=== PATIENT | female | born 1980 | race Caucasian/White ===

== ENCOUNTER 2020-03-08 12:00 | Outpatient (CLI) | payer OTHER | END 2020-03-08 23:59 | disposition home or self-care (01) | LOC: LAB.R 12:00 | PROVIDERS: ATTEND Nurse Practitioner Family | DX: R31.9 Hematuria, unspecified (principal); R50.9 Fever, unspecified | CPT/HCPCS: 87086 ==

== ENCOUNTER 2020-03-26 14:00 | Outpatient (CLI) | payer OTHER | END 2020-03-26 14:01 | disposition home or self-care (01) | LOC: LAB 14:00 | PROVIDERS: ATTEND Nurse Practitioner Family | DX: Z53.9 Procedure and treatment not carried out, unspecified reason (principal) | CPT/HCPCS: 87086 ==

== ENCOUNTER 2020-04-25 12:32 | Outpatient (CLI) | payer OTHER | END 2020-04-25 12:33 | disposition home or self-care (01) | LOC: COV 12:32 | PROVIDERS: ATTEND Family Medicine | DX: Z20.828 Contact with and (suspected) exposure to other viral communicable diseases (principal) ==

== ENCOUNTER 2020-05-16 15:15 | Outpatient (CLI) | payer OTHER ==
[2020-05-17 19:52] LABS: CANDIDA GROUP DNA NEGATIVE (NEGATIVE); CANDIDA KRUSEI DNA NEGATIVE (NEGATIVE); TRICHOMONAS VAGINALIS DNA NEGATIVE (NEGATIVE)
== END 2020-05-16 23:59 | disposition home or self-care (01) ==
LOC: LAB.R 15:15
PROVIDERS: ATTEND Advanced Practice Midwife
DX: N89.8 Other specified noninflammatory disorders of vagina (principal)
CPT/HCPCS: 87661; 87801

== ENCOUNTER 2020-05-17 19:25 | Outpatient (CLI) | payer OTHER ==
--- NOTE | 2020-05-17 20:39 | Ultrasound Report ---
PROCEDURE: Pelvic w/Transvaginal INDICATIONS: IUD PLACEMENT TECHNIQUE: Real-time scanning was performed of the pelvic organs, with image documentation. Additional endovagi nal scanning was necessary due to incomplete visualization of the adnexal and endometrial structures by transabdominal scanning. COMPARISON: None. FINDINGS: Transabdominal scanning: Limited scanning through the kidneys shows no hydronephrosis. No pathologi c free abdominal or pelvic fluid. Endovaginal scanning: Uterus: Uterus is normal in size at 8.2 x 4 x 4.5 cm. The endometrium measures 7 mm in combined thi ckness. Intrauterine device is seen in expected position within the endometrium. Ovaries: The right ovary measures 3.3 x 1.4 x 1.8 cm with a volume of 4 mL. The left ovary measures 2.6 x 2 x 2 cm with a volume of 6 mL. A cyst is seen in the left ovary measuring up to 1.9 cm in maxi mum dimension. IMPRESSION: Intrauterine device in expected position within the endometrium. Reviewed by: Sunil Amador MD on 05/17/2020 8:38 PM PDT Approved by: Sunil Amador MD on 05/17/2020 8:38 PM PDT Station ID: [id number]
== END 2020-05-17 19:26 | disposition home or self-care (01) ==
LOC: DI 19:25
PROVIDERS: ATTEND Advanced Practice Midwife
DX: Z97.5 Presence of (intrauterine) contraceptive device (principal)
CPT/HCPCS: 76830; 76856

== ENCOUNTER 2021-06-19 08:00 | Outpatient (CLI) | payer OTHER | END 2021-06-19 23:59 | disposition home or self-care (01) | LOC: LAB.N 08:00 | PROVIDERS: ATTEND Physician Assistant | DX: R07.0 Pain in throat (principal); R05.3 Chronic cough; Z20.822 Contact with and (suspected) exposure to COVID-19 ==

== ENCOUNTER 2022-01-03 17:37 | Outpatient (CLI) | payer OTHER ==
[2022-01-03 18:09] LABS: BILIRUBIN,URINE NEGATIVE (NEGATIVE); GLUCOSE, URINE (UA) NEGATIVE (NEGATIVE); KETONES,URINE (UA) NEGATIVE (NEGATIVE); LEUKOCYTE ESTERASE, URINE NEGATIVE (NEGATIVE); NITRITE,URINE NEGATIVE (NEGATIVE); OCCULT BLOOD,URINE NEGATIVE (NEGATIVE); PROTEIN,URINE NEGATIVE (NEGATIVE); UROBILINOGEN,URINE 0.2 (NORMAL) E.U./dL (NORMAL)
[2022-01-03 18:21] LABS: BACTERIA,URINE Few /HPF (None Seen); CLARITY,URINE HAZY (CLEAR); RBC,URINE 0-5 /HPF (0-5); SQUAMOUS EPITHELIAL CELL,UR MOD Squamous (<= Few); WBC,URINE 0-3 /HPF (0-5)
== END 2022-01-03 17:38 | disposition home or self-care (01) ==
LOC: LAB 17:37
PROVIDERS: ATTEND Obstetrics & Gynecology
DX: Z32.01 Encounter for pregnancy test, result positive (principal)
CPT/HCPCS: 81001; 87086

== ENCOUNTER 2022-01-16 15:44 | Outpatient (CLI) | payer OTHER ==
[2022-01-16 17:01] LABS: BASOPHILS % (AUTO) 0.3 %; EOSINOPHILS # (AUTO) 0.1 10^3/uL (0.0-0.7); EOSINOPHILS % (AUTO) 0.7 %; HCT - HEMATOCRIT 38.9 % (37.0-47.0); HGB - HEMOGLOBIN 12.9 g/dL (12.0-16.0); LYMPHOCYTES # (AUTO) 2.1 10^3/uL (1.5-3.5); LYMPHOCYTES % (AUTO) 19.5 %; MEAN CORPUSCULAR HEMOGLOBIN 30.8 pg (27.0-31.0); MEAN CORPUSCULAR HGB CONC 33.2 g/dL (32.0-36.0); MEAN CORPUSCULAR VOLUME 92.8 fL (81.0-99.0); MEAN PLATELET VOLUME 9.6 fL (7.9-10.8); MONOCYTES # (AUTO) 0.5 10^3/uL (0.0-1.0); NEUTROPHILS # (AUTO) 7.8 10^3/uL (1.5-6.6); NEUTROPHILS % (AUTO) 74.2 %; PLT - PLATELET COUNT 298 10^3/uL (130-450); RED BLOOD COUNT 4.19 10^6/uL (4.20-5.40); RED CELL DISTRIBUTION WIDTH 11.9 % (12.0-15.0); WHITE BLOOD COUNT 10.5 x10^3/uL (4.8-10.8)
[2022-01-17 03:09] LABS: RPR Non Reactive (Non Reactive)
[2022-01-17 06:10] LABS: HBsAG SCREEN Negative (Negative); HCV AB 0.1 s/co ratio (0.0-0.9)
[2022-01-17 07:10] LABS: HIV SCREEN 4TH GENERATION Non Reactive (Non Reactive)
[2022-01-17 08:09] LABS: VARICELLA-ZOSTER AB IGG 1634 index (Immune >165)
--- NOTE | 2022-01-17 14:06 | Ultrasound Report ---
PROCEDURE: OB First Trimester w/TV INDICATIONS: POSITIVE TEST OUTSIDE/PRIOR DATING DATA: Last menstrual period (LMP): 11/20/2021. LMP-based estimated date of delivery (JOY): 08/27/2022. First dating scan (date and location): 01/16/2022. Estimated date of delivery (JOY) from first dating scan: 08/24/2022. The below data below was generated using the ultrasound JOY of 08/24/2022 TECHNIQUE: Real-time scanning was performed of the fetus and maternal pelvic organs, with image documentation. Endovaginal scanning was also performed to better visualize the fetus and maternal ovaries. COMPARISON: None. FINDINGS: Embryo: Single living intrauterine gestation with estimated sonographic gestational age of approxima tely 8 weeks and 4 days based off crown-rump length measurement of 1.95 cm. Normal yolk sac identifie d. No perigestational hemorrhage. Heart rate: 1 66 bpm Measurement variability in dating: +/- 4 weeks by LMP, +/- 7 days by mean sac diameter (use before 6 weeks gestation if crown-rump length not able to be measured), +/- 5 days by crown-rump length (6-12 weeks gestation). Maternal organs: Right ovary was not visualized on this exam. Left corpus luteal cyst measuring 1.7 c m in size. Maternal cervix measures approximately 3.75 cm. Cervix appears long and closed. IMPRESSION: Single living intrauterine gestation with estimated sonographic gestational age of approximately 8 we eks and 4 days based off crown-rump length measurement. Estimated date of delivery is approximately . Recommend continued clinical surveillance with follow-up routine second trimester anatomic scre ening survey. Reviewed by: Crow Damon MD on 01/17/2022 2:04 PM PDT Approved by: Crow Damon MD on 01/17/2022 2:04 PM PDT Station ID: [id number]
== END 2022-01-16 15:45 | disposition home or self-care (01) ==
LOC: DI 15:44
PROVIDERS: ATTEND Obstetrics & Gynecology
DX: Z32.01 Encounter for pregnancy test, result positive (principal); Z36.89 Encounter for other specified antenatal screening
CPT/HCPCS: 36415; 85025; 86592; 86762; 86787; 86803; 86850; 86900; 86901; 87340; 87389

== ENCOUNTER 2022-01-24 08:00 | Outpatient (CLI) | payer OTHER ==
[2022-01-24 16:53] LABS: BILIRUBIN,URINE NEGATIVE (NEGATIVE); GLUCOSE, URINE (UA) NEGATIVE (NEGATIVE); KETONES,URINE (UA) NEGATIVE (NEGATIVE); LEUKOCYTE ESTERASE, URINE NEGATIVE (NEGATIVE); NITRITE,URINE NEGATIVE (NEGATIVE); OCCULT BLOOD,URINE NEGATIVE (NEGATIVE); PH,URINE 6.5 PH (5.0-7.5); PROTEIN,URINE NEGATIVE (NEGATIVE); UROBILINOGEN,URINE 0.2 (NORMAL) E.U./dL (NORMAL)
[2022-01-24 16:58] LABS: CLARITY,URINE CLEAR (CLEAR)
[2022-01-24 17:10] LABS: BACTERIA,URINE Few /HPF (None Seen); RBC,URINE 0-5 /HPF (0-5); SQUAMOUS EPITHELIAL CELL,UR FEW Squamous (<= Few); WBC,URINE 0-3 /HPF (0-5)
== END 2022-01-24 23:59 | disposition home or self-care (01) ==
LOC: LAB 08:00
PROVIDERS: ATTEND Obstetrics & Gynecology
DX: Z36.89 Encounter for other specified antenatal screening (principal)
CPT/HCPCS: 81001; 87086

== ENCOUNTER 2022-02-12 09:12 | Outpatient (CLI) | payer OTHER | END 2022-02-12 09:13 | disposition home or self-care (01) | LOC: LAB 09:12 | PROVIDERS: ATTEND Obstetrics & Gynecology | DX: Z34.90 Encounter for supervision of normal pregnancy, unspecified, unspecified trimester (principal) | CPT/HCPCS: 36415; 82950 ==

== ENCOUNTER 2022-02-19 08:18 | Outpatient (CLI) | payer OTHER ==
[2022-02-19 08:58] LABS: GTT GLUCOSE,FASTING 100 mg/dL (70-100)
== END 2022-02-19 08:19 | disposition home or self-care (01) ==
LOC: LAB 08:18
PROVIDERS: ATTEND Obstetrics & Gynecology
DX: O99.810 Abnormal glucose complicating pregnancy (principal)
CPT/HCPCS: 36415; 82951; 82952

== ENCOUNTER 2022-04-04 06:53 | Outpatient (CLI) | payer OTHER ==
--- NOTE | 2022-04-04 13:36 | Ultrasound Report ---
PROCEDURE: OB Detailed Eval INDICATIONS: SUPERVISION OF OUTSIDE/PRIOR DATING DATA: Last menstrual period (LMP): 11/20/2021. LMP-based estimated date of delivery (JOY): 08/27/2022. First dating scan (date and location): 01/16/2022. Estimated date of delivery (JOY) from first dating scan: 08/24/2022 TECHNIQUE: COMPARISON: 01/16/2022 FINDINGS: General: A single living intrauterine gestation is present. Presentation: Breech Placenta: Placental position is posterior, without previa. Amniotic fluid index: 14.6 cm heart rate: 148 beats per minute. Maternal cervical canal: 5.2 cm long; normal length is 2.5 cm or more. biometrics (centimeters): Biparietal diameter: 4.6 Head circumference: 17.3 Abdominal circumference: 14.5 Femur length: 3.2 Estimated gestational age from initial scan: 19 weeks and 5 days Composite gestational age from present scan: 19 weeks and 6 days Estimated weight and percentile: 55.6 percentile, 319 g Measurement variability in biometric dating: +/- 10 days from 12-20 weeks gestation, +/- 2 weeks from 20-30 weeks gestation, +/- 3 weeks at 30 weeks gestation or later. Anatomic survey: Neuro: Ventricles are normal at less than 10 mm. Cisterna magna is normal at 3-11 mm. Cerebellum i s normal in size and morphology. Nuchal skin fold: Not well seen Face: Not well seen Spine: The skin line overlying the sacral spine is not well seen. Heart: Not well seen Diaphragm: Not well seen Stomach: Left-sided stomach is present. Kidneys: No hydronephrosis. Normal is less than 5 mm in 2nd trimester, less than 7 mm in 3rd trimester. Cord: Not well seen Bladder: Normal in size. Gender is not well seen. Extremities: Lower extremities are not well seen. IMPRESSION: Intrauterine gestation at 19 weeks and 5 days based on initial ultrasound with concordant dating toda y (55.6 percentile). Multiple anatomic structures above are not well seen due to patient factors. Consider follow-up imagi ng. Reviewed by: Chris Hernandez MD on 04/04/2022 1:35 PM PDT Approved by: Chris Hernandez MD on 04/04/2022 1:35 PM PDT Station ID: [id number]
== END 2022-04-04 06:54 | disposition home or self-care (01) ==
LOC: DI 06:53
PROVIDERS: ATTEND Obstetrics & Gynecology
DX: O09.512 Supervision of elderly primigravida, second trimester (principal); Z36.89 Encounter for other specified antenatal screening; Z3A.19 19 weeks gestation of pregnancy

== ENCOUNTER 2022-04-10 20:11 | Outpatient (CLI) | payer OTHER ==
--- NOTE | 2022-04-11 09:43 | Ultrasound Report ---
PROCEDURE: OB F/U or Repeat INDICATIONS: SUPERVISION OF OUTSIDE/PRIOR DATING DATA: Last menstrual period (LMP): 11/20/2021. LMP-based estimated date of delivery (JOY): 08/27/2022. First dating scan (date and location): 01/16/2022. Estimated date of delivery (JOY) from first dating scan: 08/24/2022. The below data below was generated using the ultrasound JOY of 08/24/2022 TECHNIQUE: Real-time scanning was performed of the fetus, with image documentation. Endovaginal scanning: Not performed COMPARISON: 04/04/2022 FINDINGS: General: A single living intrauterine gestation is present. Presentation: Vertex Placenta: Placental position is posterior, without previa. Amniotic fluid index: 14.0 cm, deepest pocket is 5.0 cm. heart rate: 140 beats per minute. Maternal cervical canal: Not well seen Other: The facial profile, nose, lips, and orbits are without abnormality. The nuchal thicknes s is normal for age. 4 chambered heart, cardiac outflow tracts, diaphragm, kidneys, cord insert ion, gender, and lower extremities were seen and appear normal. IMPRESSION: 1. Single living intrauterine . 2. Completion of the anatomic survey with normal anatomy seen. Reviewed by: Luba Rankin MD on 04/11/2022 9:42 AM PDT Approved by: Luba Rankin MD on 04/11/2022 9:42 AM PDT Station ID: [id number]
== END 2022-04-10 20:12 | disposition home or self-care (01) ==
LOC: DI 20:11
PROVIDERS: ATTEND Obstetrics & Gynecology
DX: O09.512 Supervision of elderly primigravida, second trimester (principal)

== ENCOUNTER 2022-06-05 07:50 | Outpatient (CLI) | payer OTHER ==
[2022-06-05 08:19] LABS: GTT GLUCOSE,FASTING 94 mg/dL (70-100)
== END 2022-06-05 07:51 | disposition home or self-care (01) ==
LOC: LAB 07:50
PROVIDERS: ATTEND Student in an Organized Health Care Education/Training Program
DX: R73.09 Other abnormal glucose (principal)
CPT/HCPCS: 36415; 82951; 82952

== ENCOUNTER 2023-07-10 14:33 | Emergency (ER) | payer OTHER ==
[2023-07-10 14:48] VITALS: O2SAT 100
--- NOTE | 2023-07-10 14:52 | ED Physician Documentation ---
PD HPI FEMALE - Stated complaint Stated Complaint: FEMALE - Chief complaint Chief Complaint: Abd Pain - History obtained from History obtained from: Patient - History of Present Illness Timing - onset: Yesterday, How many days ago (1) Timing - duration: Days (1) Timing - details: Gradual onset, Waxing and waning Associated symptoms: Vaginal bleeding (brown discharge that has become pink and now red. No clots. Mild lower abd cramping at times.). No: Fever Contributing factors: (5 weeks by dates from LMP. Had home positive preg test 6 days go.), Sexually active. No: Exposed to STD Similar symptoms before: Has not had sx before Recently seen: Not recently seen Review of Systems Constitutional: denies: Fever, Chills Nose: denies: Congestion Throat: denies: Sore throat Respiratory: denies: Cough : reports: Now EGA (had positive home test 4 days ago and again ydsterday.). denies: Dysuria, Frequency, Discharge PD PAST MEDICAL HISTORY - Past Medical History Past Medical History: Yes Cardiovascular: Hypertension Psych: Depression, Anxiety - Past Surgical History Past Surgical History: Yes Ortho: Carpal Tunnel surgery HEENT: Tonsil/Adenoidectomy - Present Medications Home Medications: Ambulatory Orders Medication Instructions Recorded Confirmed Sertraline [Zoloft] 50 mg PO DAILY 07/10/23 07/10/23 busPIRone [Buspar] 10 mg PO BID 07/10/23 07/10/23 - Allergies Allergies/Adverse Reactions: Allergies Allergy/AdvReac Type Severity Reaction Status Date / Time No Known Drug Allergies Allergy Verified 07/10/23 14:48 - Social History Does the pt smoke?: No Smoking Status: Never smoker Does the pt drink ETOH?: No Does the pt have substance abuse?: No - Immunizations Immunizations are current?: Yes - POLST Patient has POLST: No PD ED PE NORMAL - Vitals Vital signs reviewed: Yes - General General: Alert and oriented X 3, No acute distress, Well developed/nourished - Cardiac Cardiac: RRR, No murmur - Respiratory Respiratory: No respiratory distress, Clear bilaterally - Abdomen Abdomen: Soft, Non tender, Other (high BMI) - Female Female : Deferred Results - Vitals Vitals: Vital Signs - 24 hr 07/10/23 07/10/23 07/10/23 14:42 14:48 16:48 Temperature 36.8 C 36.8 C 36.8 C Heart Rate 89 89 88 Respiratory 16 16 16 Rate Blood Pressure 214/97 H 214/97 H 190/80 H O2 Saturation 100 100 100 Oxygen O2 Source Room air - Labs Labs: Laboratory Tests 07/10/23 07/10/23 07/10/23 15:39 15:39 15:39 WBC 7.8 RBC 4.29 Hgb 12.5 Hct 38.6 MCV 90.0 MCH 29.1 MCHC 32.4 RDW 12.6 Plt Count 283 MPV 9.5 Neut # (Auto) 5.3 Lymph # (Auto) 1.9 [place] # (Auto) 0.5 Eos # (Auto) 0.1 Baso # (Auto) 0.0 Absolute Nucleated RBC 0.00 Nucleated RBC % 0.0 Sodium 137 Potassium 3.7 Chloride 103 Carbon Dioxide 28 Anion Gap 6.0 BUN 12 Creatinine 0.7 Estimated GFR (MDRD) 92 Glucose 101 Calcium 9.1 Total Bilirubin 0.4 AST 16 ALT 15 Alkaline Phosphatase 54 Total Protein 6.8 Albumin 4.1 Globulin 2.7 Albumin/Globulin Ratio 1.5 Lipase 18 Beta HCG, Quant 11.2 Blood Type O POSITIVE - Rads (name of study) OB pelvic US Relevant Findings:: Prelim report reviewed (no IIUP nor adnexal/pelvic acute abnormality. ), EMP independent interpretation of test PD Medical Decision Making - ED course Complexity details: reviewed results, considered differential (has some vaginal spotting/bleeding. Had home preg test positive this past week. Has quant HCG of just 11 here. So presume miscarriage as a rising quant with 11 now, would not have been in detectable level for urine HCG. Presume the 11 quant is a falling level. Did US to ensure not visible ectopic/et), d/w patient Departure - Departure Disposition: 01 Home, Self Care Clinical Impression: Early stage of , Blighted ovum Condition: Stable Record reviewed to determine appropriate education?: Yes Instructions: ED Miscarriage Poss Follow-Up: LUANN OLMEDO ARNP [Primary Care Provider] - Comments: Your ultrasound did not show any obvious intrauterine . More importantly at this point there is no abnormality seen in the ovaries or outside the uterus and no free fluid to suggest pelvic bleeding. It is possible that your is too early to be seen on ultrasound. Your blood level hCG was 11 which is very low and suggestive more likely that it was a blighted ovum/miscarriage. However would be most prudent to check with your primary care and have them order a serum quantitative hCG level on Thursday to assess whether it is going higher to suggest a viable or lower/the same to confirm miscarriage. I would anticipate improvement in the vaginal spotting and bleeding. Recheck if significant increase in bleeding or you have increased pain, purulent discharge, fevers or other concerns. Forms: PCP List Discharge Date/Time: 07/10/23 17:47
[2023-07-10 15:45] LABS: BASOPHILS % (AUTO) 0.4 %; EOSINOPHILS # (AUTO) 0.1 10^3/uL (0.0-0.7); EOSINOPHILS % (AUTO) 1.3 %; HCT - HEMATOCRIT 38.6 % (37.0-47.0); HGB - HEMOGLOBIN 12.5 g/dL (12.0-16.0); LYMPHOCYTES # (AUTO) 1.9 10^3/uL (1.5-3.5); MEAN CORPUSCULAR HEMOGLOBIN 29.1 pg (27.0-31.0); MEAN CORPUSCULAR HGB CONC 32.4 g/dL (32.0-36.0); MEAN PLATELET VOLUME 9.5 fL (7.9-10.8); MONOCYTES # (AUTO) 0.5 10^3/uL (0.0-1.0); MONOCYTES % (AUTO) 6.4 %; NEUTROPHILS # (AUTO) 5.3 10^3/uL (1.5-6.6); NEUTROPHILS % (AUTO) 67.6 %; PLT - PLATELET COUNT 283 10^3/uL (130-450); RED BLOOD COUNT 4.29 10^6/uL (4.20-5.40); RED CELL DISTRIBUTION WIDTH 12.6 % (12.0-15.0); WHITE BLOOD COUNT 7.8 x10^3/uL (4.8-10.8)
[2023-07-10 16:10] LABS: ALBUMIN 4.1 g/dL (3.2-5.5); ALBUMIN/GLOBULIN RATIO 1.5 (1.0-2.2); BILIRUBIN,TOTAL 0.4 mg/dL (0.2-1.0); CALCIUM 9.1 mg/dL (8.5-10.3); CREATININE 0.7 mg/dL (0.6-1.3); POTASSIUM 3.7 mmol/L (3.5-4.5); TOTAL PROTEIN 6.8 g/dL (6.4-8.9)
[2023-07-10 17:47] VITALS: BP 190/80
--- NOTE | 2023-07-10 18:07 | Ultrasound Report ---
PROCEDURE: OB First Trimester INDICATIONS: early preg, vag bleeding/cramps OUTSIDE/PRIOR DATING DATA: Last menstrual period (LMP): Unknown. LMP-based estimated date of delivery (JOY): Unknown. TECHNIQUE: Real-time scanning was performed of the fetus and maternal pelvic organs, with image documentation. COMPARISON: None. FINDINGS: No intrauterine gestational sac seen. Maternal organs: Adnexa are unremarkable. No free fluid. Uterus measures 9 x 5 x 4.1 cm. Endometrium measures 8 mm. IMPRESSION: of uncertain location. No intrauterine gestational sac. No significant ovarian cyst seen. No free fluid. Recommend trending beta hCG and short-term follow-up OB ultrasound if indicated. Reviewed by: Lance Torres MD on 07/10/2023 6:06 PM PST Approved by: Lance Torres MD on 07/10/2023 6:06 PM PST Station ID: [id number]
== END 2023-07-10 17:47 | disposition home or self-care (01) ==
LOC: ED 14:33
DX: O02.0 Blighted ovum and nonhydatidiform mole (principal)
CPT/HCPCS: 36415; 80053; 83690; 84702; 85025; 86900; 86901; 99283; 99284

== ENCOUNTER 2023-12-07 08:00 | Outpatient (CLI) | payer OTHER ==
[2023-12-07 16:56] LABS: BILIRUBIN,URINE NEGATIVE (NEGATIVE); GLUCOSE, URINE (UA) NEGATIVE (NEGATIVE); KETONES,URINE (UA) NEGATIVE (NEGATIVE); LEUKOCYTE ESTERASE, URINE NEGATIVE (NEGATIVE); NITRITE,URINE NEGATIVE (NEGATIVE); OCCULT BLOOD,URINE NEGATIVE (NEGATIVE); PH,URINE 7.5 PH (5.0-7.5); PROTEIN,URINE NEGATIVE (NEGATIVE); UROBILINOGEN,URINE 0.2 (NORMAL) E.U./dL (NORMAL)
[2023-12-07 17:06] LABS: BACTERIA,URINE None Seen /HPF (None Seen); CLARITY,URINE CLEAR (CLEAR); RBC,URINE None Seen /HPF (0-5); SQUAMOUS EPITHELIAL CELL,UR NONE SEEN (<= Few); WBC,URINE 0-3 /HPF (0-5)
== END 2023-12-07 23:59 | disposition home or self-care (01) ==
LOC: LAB.WC 08:00 → MERGE 16:50 → LAB.WC 23:59
PROVIDERS: ATTEND Obstetrics & Gynecology
DX: Z34.80 Encounter for supervision of other normal pregnancy, unspecified trimester (principal)
CPT/HCPCS: 81001; 87086

== ENCOUNTER 2023-12-23 15:57 | Outpatient (CLI) | payer OTHER ==
[2023-12-23 17:05] LABS: BASOPHILS % (AUTO) 0.2 %; EOSINOPHILS # (AUTO) 0.1 10^3/uL (0.0-0.7); EOSINOPHILS % (AUTO) 1.2 %; HCT - HEMATOCRIT 36.2 % (37.0-47.0); HGB - HEMOGLOBIN 11.4 g/dL (12.0-16.0); LYMPHOCYTES # (AUTO) 1.8 10^3/uL (1.5-3.5); LYMPHOCYTES % (AUTO) 20.4 %; MEAN CORPUSCULAR HGB CONC 31.5 g/dL (32.0-36.0); MEAN CORPUSCULAR VOLUME 92.1 fL (81.0-99.0); MEAN PLATELET VOLUME 9.5 fL (7.9-10.8); MONOCYTES # (AUTO) 0.5 10^3/uL (0.0-1.0); MONOCYTES % (AUTO) 5.3 %; NEUTROPHILS # (AUTO) 6.5 10^3/uL (1.5-6.6); NEUTROPHILS % (AUTO) 72.7 %; PLT - PLATELET COUNT 291 10^3/uL (130-450); RED BLOOD COUNT 3.93 10^6/uL (4.20-5.40); RED CELL DISTRIBUTION WIDTH 12.2 % (12.0-15.0); WHITE BLOOD COUNT 8.9 x10^3/uL (4.8-10.8)
--- NOTE | 2023-12-24 01:41 | Ultrasound Report ---
PROCEDURE: OB 1st Trimester INDICATIONS: POSITIVE TEST OUTSIDE/PRIOR DATING DATA: Last menstrual period (LMP): 10/14/2023. LMP-based estimated date of delivery (JOY): 07/20/2024. First dating scan (date and location): 12/23/2023. Estimated date of delivery (JOY) from first dating scan: 10 weeks, 6 days. TECHNIQUE: Real-time scanning was performed of the fetus and maternal pelvic organs, with image documentation. COMPARISON: None. FINDINGS: Intrauterine gestational sac present. Embryo: There is a single intrauterine gestation. Mean gestational sac diameter measures 5.99 cm cor responding to estimated age of 12 weeks, 1 day. Spearman-rump length measures 3.9 cm with estimate d age of 10 weeks, 6 days. Heart rate: 173 bpm. Other: No perigestational fluid collection. Measurement variability in dating: +/- 4 weeks by LMP, +/- 7 days by mean sac diameter (use before 6 weeks gestation if crown-rump length not able to be measured), +/- 5 days by crown-rump length (6-12 weeks gestation). Maternal organs: Ovaries appear within normal limits. Left corpus luteum cyst. IMPRESSION: Single intrauterine gestation with crown-rump length of 3.9 cm corresponding to estimated age o f 10 weeks, 6 days. Reviewed by: Summer Linn MD, PhD on 12/24/2023 12:39 AM NADER Approved by: Summer Linn MD, PhD on 12/24/2023 12:39 AM NADER Station ID: [id number]
[2023-12-24 03:11] LABS: HBsAG SCREEN Negative (Negative); HIV SCREEN 4TH GENERATION Non Reactive (Non Reactive)
[2023-12-24 07:10] LABS: RPR Non Reactive (Non Reactive)
[2023-12-24 09:10] LABS: VARICELLA-ZOSTER AB IGG 2120 index (Immune >165)
[2023-12-26 01:09] LABS: HCV AB Non Reactive (Non Reactive)
== END 2023-12-23 15:58 | disposition home or self-care (01) ==
LOC: DI 15:57
PROVIDERS: ATTEND Obstetrics & Gynecology
DX: O09.521 Supervision of elderly multigravida, first trimester (principal); Z36.89 Encounter for other specified antenatal screening; Z3A.10 10 weeks gestation of pregnancy
CPT/HCPCS: 36415; 85025; 86592; 86762; 86787; 86803; 86850; 86900; 86901; 87340; 87389

== ENCOUNTER 2023-12-30 08:00 | Outpatient (CLI) | payer OTHER ==
[2023-12-30 16:15] LABS: BILIRUBIN,URINE NEGATIVE (NEGATIVE); GLUCOSE, URINE (UA) NEGATIVE (NEGATIVE); KETONES,URINE (UA) NEGATIVE (NEGATIVE); LEUKOCYTE ESTERASE, URINE NEGATIVE (NEGATIVE); NITRITE,URINE NEGATIVE (NEGATIVE); OCCULT BLOOD,URINE NEGATIVE (NEGATIVE); PROTEIN,URINE NEGATIVE (NEGATIVE); UROBILINOGEN,URINE 0.2 (NORMAL) E.U./dL (NORMAL)
[2023-12-30 16:19] LABS: CLARITY,URINE CLEAR (CLEAR)
[2023-12-30 16:32] LABS: BACTERIA,URINE Few /HPF (None Seen); MUCUS,URINE Few Strands; RBC,URINE 0-5 /HPF (0-5); SQUAMOUS EPITHELIAL CELL,UR FEW Squamous (<= Few); WBC,URINE 0-3 /HPF (0-5)
[2023-12-30 20:51] LABS: CHLAMYDIA TRACHOMATIS DNA NEGATIVE (NEGATIVE); NEISSERIA GONORRHOEAE DNA NEGATIVE (NEGATIVE); TRICHOMONAS VAGINALIS DNA NEGATIVE (NEGATIVE)
== END 2023-12-30 23:59 | disposition home or self-care (01) ==
LOC: LAB.WC 08:00
PROVIDERS: ATTEND Obstetrics & Gynecology
DX: Z34.80 Encounter for supervision of other normal pregnancy, unspecified trimester (principal); Z36.89 Encounter for other specified antenatal screening
CPT/HCPCS: 81001; 87086; 87491; 87591; 87661

== ENCOUNTER 2023-12-31 11:31 | Outpatient (CLI) | payer OTHER | END 2023-12-31 11:32 | disposition home or self-care (01) | LOC: LAB.N 11:31 | PROVIDERS: ATTEND Obstetrics & Gynecology | DX: Z53.9 Procedure and treatment not carried out, unspecified reason (principal) ==

== ENCOUNTER 2024-01-01 12:29 | Outpatient (CLI) | payer OTHER | END 2024-01-01 12:30 | disposition home or self-care (01) | LOC: LAB 12:29 | PROVIDERS: ATTEND Obstetrics & Gynecology | DX: O09.91 Supervision of high risk pregnancy, unspecified, first trimester (principal) ==

== ENCOUNTER 2024-01-13 09:06 | Outpatient (CLI) | payer OTHER ==
[2024-01-13 11:00] LABS: ESTIMATED AVERAGE GLUCOSE 94 mg/dL (70-100); HEMOGLOBIN A1c% 4.9 % (4.27-6.07)
== END 2024-01-13 09:07 | disposition home or self-care (01) ==
LOC: LAB 09:06
PROVIDERS: ATTEND Obstetrics & Gynecology
DX: O09.91 Supervision of high risk pregnancy, unspecified, first trimester (principal)
CPT/HCPCS: 36415; 82950; 83036

== ENCOUNTER 2024-02-16 13:37 | Outpatient (CLI) | payer OTHER | END 2024-02-16 13:38 | disposition home or self-care (01) | LOC: LAB 13:37 | PROVIDERS: ATTEND Obstetrics & Gynecology | DX: O09.91 Supervision of high risk pregnancy, unspecified, first trimester (principal) | CPT/HCPCS: 36415; 82105 ==

== ENCOUNTER 2024-04-13 09:12 | Outpatient (CLI) | payer OTHER ==
[2024-04-13 10:43] LABS: BASOPHILS % (AUTO) 0.2 %; EOSINOPHILS # (AUTO) 0.1 10^3/uL (0.0-0.7); HCT - HEMATOCRIT 32.7 % (37.0-47.0); HGB - HEMOGLOBIN 10.4 g/dL (12.0-16.0); LYMPHOCYTES # (AUTO) 1.3 10^3/uL (1.5-3.5); LYMPHOCYTES % (AUTO) 16.2 %; MEAN CORPUSCULAR HEMOGLOBIN 29.3 pg (27.0-31.0); MEAN CORPUSCULAR HGB CONC 31.8 g/dL (32.0-36.0); MEAN CORPUSCULAR VOLUME 92.1 fL (81.0-99.0); MEAN PLATELET VOLUME 9.4 fL (7.9-10.8); MONOCYTES # (AUTO) 0.3 10^3/uL (0.0-1.0); MONOCYTES % (AUTO) 4.1 %; NEUTROPHILS # (AUTO) 6.3 10^3/uL (1.5-6.6); NEUTROPHILS % (AUTO) 77.9 %; PLT - PLATELET COUNT 238 10^3/uL (130-450); RED BLOOD COUNT 3.55 10^6/uL (4.20-5.40); RED CELL DISTRIBUTION WIDTH 13.1 % (12.0-15.0); WHITE BLOOD COUNT 8.1 x10^3/uL (4.8-10.8)
[2024-04-14 06:12] LABS: RPR Non Reactive (Non Reactive)
== END 2024-04-13 09:13 | disposition home or self-care (01) ==
LOC: LAB 09:12
PROVIDERS: ATTEND Obstetrics & Gynecology
DX: O09.92 Supervision of high risk pregnancy, unspecified, second trimester (principal)
CPT/HCPCS: 36415; 82950; 85025; 86592